=== PATIENT | male | born 1960 | race Caucasian/White ===

== ENCOUNTER 2017-07-17 10:59 | Emergency (ER) | payer MEDICAID ==
[2017-07-17] MEDS ORDERED: Lidocaine 2% PF * 5 ML VIAL INJ ONE (11:33)
[2017-07-17] MEDS ORDERED: Tetan/Diph/Pertus SYR(Tdap)* 0.5 ML SYR(BOOSTRIX) use SYR IM ONE (11:33)
[2017-07-17] MEDS ORDERED: Cephalexin CAP* 500 MG PO ONE (11:35)
[2017-07-17 11:36] VITALS: BP 148/85
--- NOTE | 2017-07-17 11:39 | UC ---
Laceration HPI - HPI Summary HPI Summary: patient cut his left thenar emenince on a peice of metal caught in a blocker and sewer , 6 cm laceration - History Of Current Complaint Stated Complaint: LEFT HAND LACERATION Time Seen by Provider: 07/17/17 11:25 Hx Obtained From: Patient Laceration Location: Hand Mechanism Of Injury: Sharp Trauma Onset/Duration: Sudden Onset, Lasting Hours Severity: Moderate Aggravating Factors: Position, Movement - Allergies/Home Medications Allergies/Adverse Reactions: Allergies Allergy/AdvReac Type Severity Reaction Status Date / Time No Known Allergies Allergy Verified 07/17/17 11:30 PMH/Surg Hx/FS Hx/Imm Hx Previously Healthy: Yes - Family History Known Family History: Negative: Cardiac Disease, Hypertension Review of Systems Constitutional: Negative Skin: Other - laceration Eyes: Negative ENT: Negative Respiratory: Negative Cardiovascular: Negative Gastrointestinal: Negative Genitourinary: Negative Motor: Negative Neurovascular: Negative Musculoskeletal: Negative Neurological: Negative Psychological: Negative All Other Systems Reviewed And Are Negative: Yes Physical Exam Triage Information Reviewed: Yes Appearance: Well-Appearing, Well-Nourished, Pain Distress Vital Signs Reviewed: Yes Eye Exam: Normal ENT Exam: Normal Dental Exam: Normal Neck exam: Normal Respiratory Exam: Normal Cardiovascular Exam: Normal Cardiovascular: Positive: RRR, No Murmur, Pulses Normal Abdominal Exam: Normal Abdomen Description: Positive: Nontender, No Organomegaly, Soft Bowel Sounds: Positive: Present Musculoskeletal Exam: Normal Musculoskeletal: Positive: No Edema, 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, ROM Limited @ - in fingers due to pain Neurological Exam: Normal Psychological Exam: Normal Skin: Positive: Other - dirty, 6 cm laceration of the left thenar emenince Laceration Repair - Laceration Repair 1 Description: Linear Laceration Size After Repair: Length (cm) - 6 Modified For Repair: No Type Injection: Local Anesthesia Used: 2.0% Lido Cleansing Completed Via Routine Prep: No Irrigation With Pressure Irrigation Device: Yes Closure Material: Sutures - 8 Closure Method: Single Layer Suture Of: Skin Laceration Course/Dx - Course/Dx Course Of Treatment: hx obtained, exam performed ,meds reviewed, laceration repaired. abx prescribed - Differential Dx - Laceration/Wound Differental Diagnoses: Laceration, Puncture Wound, Tendon Laceration Provider Diagnoses: 6 cm simple laceration to the left hand Discharge - Discharge Plan Condition: Stable Disposition: HOME Patient Education Materials: Care For Your Stitches (ED) Additional Instructions: 1. keep the area clean and dry 2. Follow up in 7-10 days for suture removal, sooner if there are signs of infection 3. ibuprofen for pain
== END 2017-07-17 13:08 | disposition home or self-care (01) ==
LOC: UCCORT 10:59
DX: S61.412A Laceration without foreign body of left hand, initial encounter (principal); W26.8XXA Contact with other sharp object(s), not elsewhere classified, initial encounter; Y93.9 Activity, unspecified; Y92.9 Unspecified place or not applicable; Z23 Encounter for immunization
CPT/HCPCS: 12002; 90471; 90715; 99212; A9270-GY; G0463